=== PATIENT | male | born 1965 | race Caucasian/White ===

== ENCOUNTER 2018-05-31 20:23 | Emergency (ER) | payer BC ==
--- OUTSIDE RECORDS SUMMARY | 2018-05-31 20:28 | XMS REPORT | Continuity of Care Document ---
:1965 External Reference #:[id number] Author Name Vinh Kinsey M.D. Address [address] [place] [place] [address] Care Team Providers Name Role Phone Vinh Kinsey M.D. Care Team Information Marriage And Family Counselor Unavailable Payers Type Date Identification Numbers Payment Provider Subscriber Expires: Policy Number: [id number] Corinna LE Jeremy Velasquezrecht 2011 Group Name: [employer] [place] [address] [address] PayID: [id number] IGNACIO Roberto [id number] Effective: 2011 Policy Number: [id number] [facility] Jeremy Velasquezrecht Group Name: [employer] [address] [address] PayID: [id number] IGNACIO Roberto [id number] Advance Directives Description No Information Available Problems Description No Active Problems Family History Date Family Member(s) Problem(s) Comments Father Spinal Stenosis Father Hip Fractures B Mother Lupus Erythematosis Mother Stroke Mother CAD Mother [place] mid 50's Children 2 First Son Allergies First Son Asthma Second Son ADHD Second Son Allergies Siblings 4 First Brother Non Contributory : (age First Brother due to Suicide 44 Years) Second Brother Non Contributory Third Brother Spinal Stenosis First Sister Allergies First Sister "A Bleeder" no formal diagnosis Paternal Grandfather due to COPD () - mid 60's Paternal Grandmother due to () Alzheimer's Disease Maternal Grandfather Blood Clots DVT in his leg Maternal Grandfather due to () Complications Of Leg Amputation Maternal Grandmother Stroke Maternal Grandmother due to CHF () Paternal Uncles Hodgkin's Disease Paternal Aunts Diabetes Social History Type Date Description Comments Sex Unknown Lives With Spouse Lives With Sons Diet Healthy, Well Balanced omnivore 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 Tobacco Use Start: Unknown End: Former Cigarette Smoker x 15 years Unknown 1/2 Pack Daily Cigarette Use Quit - Age 30 ETOH Use Drinks About 6 Beers A Week Exercise Exercises sporadically no regular aerobic Type/Frequency exercise. Allergies, Adverse Reactions, Alerts Date Description Reaction Status Severity Comments 11/22/2007 NKDA Active 02/21/2012 Possible PNC Allergy itching. Can't recall Active medicine Medications Medication Date Status Form Strength Qnty SIG Indications Ordering Provider Cyclobenzaprine 04/24/ Active Tablets 5mg 30tab take 1 to 2 M54.2 Vinh HCL 2017 s tablets by Kinseymckinley up to M.D. three times a day as needed for muscle spasm - may cause drowsiness Alprazolam 11/29/ Active Tablets 0.25mg 5tabs take 1 2017 tablet by Kinsey, mouth 1 hr M.D. before procedure. May repeat every 20min if needed Singulair 03/26/ Active Tablets 10mg 90tab 1 by mouth T78.49xA Vinh 2008 s every day Jesica Kinsey Fish Oil 11/21/ Active Capsules 1 PO bid Vinh Kinsey M.D. Cialis 11/21/ Active Tablets 20mg 30tab 1/2 to 1 qd Vinh 2007 geoff prn Jesica Kinsey Cyclobenzaprine 08/31/ Hx Tablets 5mg 45tab 1-2 tab by S39.012A Arsen HCL 2016 - s mouth three Heet[place]ks 11/22/ times a day MD 2016 as needed. Will cause sleepiness. Meloxicam 04/05/ Hx Tablets 15mg 30tab 1 po daily 511.0 Vinh 2011 - s for pain, Amelie 11/22/ take with M.D. 2017 food Celebrex 03/13/ Hx Capsules 200mg 30cap take 1 511.0 Vinh 2011 - s capsule by Amelie 04/05/ mouth once M.D. 2011 daily for arthritis Amoxicillin/Potas 07/23/ Hx Tablets 875-125mg 20tab 1 po bid 461.0 Shawnti sium Clavulanate 2010 - s for sinus R. Storm, 08/07/ infection DRY FINISHER-C 2012 Oxycodone-Acetami 06/11/ Hx Tablets 5-325mg 10ten 1 po q6hr 466.0 [facility] tressa 2009 - prn severe R. Storm, 02/04/ pain DRY FINISHER-C 2010 Azithromycin 04/29/ Hx Tablets 500mg 3tabs 1 po daily 461.0 Alexanderlakshmi 2008 - for three R. Storm, 06/11/ days, if DRY FINISHER-C 2009 still sick after 10 days can take second course Augmentin 03/26/ Hx Tablets 875-125mg 20tab 1 po bid 461.0 Alexadnerlakshmi 2009 - s R. Storm, 08/02/ DRY FINISHER-C 2010 Sonata 04/22/ Hx Capsules 5mg 30cap one to two Vinh 2007 - s po hs prn Amelie, 02/04/ insomnia M.D. 2009 Augmentin 12/05/ Hx Tablets 875mg 28tab one po bid 465.9 Alexanderwlakshmi 2007 - s for R. Storm, 06/11/ sinusitis DRY FINISHER-C 2009 Ricarda 11/21/ Hx Tablets 180mg 90tab 1 PO qd 472.0 Vinh 2007 - s Amelie, 11/21/ M.D. 2007 Albuterol 11/21/ Hx Aerosol 90mcg/Act 1unit 2 Puffs Q4H Vinh 2007 - s prn Amelie, 11/22/ M.D. 2016 Ricarda-D 12 Hour 11/21/ Hx Tablets 12Hour 180ta 1 PO bid 472.0 Vinh 2007 - ER 12HR bs Amelie, 08/07/ M.D. 2011 Medications Administered in Office Medication Date Status Form Strength Qnty SIG Indications Ordering Provider Injection, Administered Injection Arsen Depo-Medrol 018 Heetderks, 40MG Immunizations CPT Code Status Date Vaccine Lot # [id number] Given 01/05/2017 Influenza Virus Vaccine, Quadrivalent, 3 Yr > Quad, Preserv Free 90568 Given 11/22/2016 Tdap (Adacel) [id number] 87429 Given 02/21/2012 Influenza Vaccine-Preservative Free 3 Yrs And [id number] Above 04732 Given 10/10/2005 Tdap (Adacel) Vital Signs Date Vital Result Comment 04/24/2018 11:37am Weight 240.00 lb Weight 108.864 kg BP Systolic 128 mmHg BP Diastolic 80 mmHg Heart Rate 72 /min Body Temperature 98.6 F Respiratory Rate 16 /min 04/03/2018 3:18pm Weight 241.00 lb Weight 109.318 kg BP Systolic 122 mmHg BP Diastolic 78 mmHg Heart Rate 82 /min Body Temperature 97.4 F Respiratory Rate 16 /min 11/29/2017 2:07pm Weight 243.00 lb Weight 110.225 kg BP Systolic 128 mmHg BP Diastolic 82 mmHg Heart Rate 90 /min Body Temperature 97.3 F Respiratory Rate 17 /min Height 75 inches 6'3" BMI (Body Mass Index) 30.4 kg/m2 03/28/2017 9:16am Weight 240.00 lb Weight 108.864 kg BP Systolic 160 mmHg BP Diastolic 90 mmHg Heart Rate 84 /min Body Temperature 97.6 F 11/22/2016 2:13pm Weight 240.00 lb Weight 108.864 kg BP Systolic 130 mmHg BP Diastolic 72 mmHg Heart Rate 76 /min Body Temperature 97.9 F Respiratory Rate 18 /min Height 76 inches 6'4" BMI (Body Mass Index) 29.2 kg/m2 O2 % BldC Oximetry 98 % 08/31/2016 10:47am Weight 246.00 lb Weight 111.586 kg BP Systolic 120 mmHg BP Diastolic 70 mmHg Heart Rate 87 /min Body Temperature 97.8 F Respiratory Rate 12 /min 08/24/2016 10:48am Weight 242.00 lb Weight 109.771 kg BP Systolic 132 mmHg BP Diastolic 90 mmHg Heart Rate 94 /min Body Temperature 97.7 F Respiratory Rate 16 /min Height 75.5 inches 6'3.50" BMI (Body Mass Index) 29.8 kg/m2 O2 % BldC Oximetry 98 % 03/13/2012 9:57am Weight 245.00 lb Weight 111.132 kg BP Systolic 110 mmHg BP Diastolic 80 mmHg Heart Rate 98 /min Body Temperature 97.6 F O2 % BldC Oximetry 98 % 03/08/2012 12:08pm Weight 243.00 lb Weight 110.225 kg BP Systolic 118 mmHg Heart Rate 89 /min 02/21/2012 2:20pm Weight 242.00 lb Weight 109.771 kg BP Systolic 124 mmHg BP Diastolic 80 mmHg Heart Rate 92 /min Height 76.5 inches 6'4.50" BMI (Body Mass Index) 29.1 kg/m2 08/22/2011 3:18pm Weight 244.00 lb Weight 110.678 kg BP Systolic 126 mmHg BP Diastolic 70 mmHg Heart Rate 96 /min 07/24/2011 1:34pm Weight 241.00 lb Weight 109.318 kg BP Systolic 130 mmHg BP Diastolic 84 mmHg Heart Rate 84 /min Height 76.5 inches 6'4.50" BMI (Body Mass Index) 29.0 kg/m2 Right Visual Acuity Distance 20/40 Left Visual Acuity Distance 20/200 Blind (Amblyopia) Both Visual Acuity Distance 20/30 Last Menstrual Period 0 02/28/2011 4:03pm Weight 238.00 lb Weight 107.957 kg BP Systolic 118 mmHg BP Diastolic 62 mmHg Heart Rate 80 /min Body Temperature 98.0 F 07/23/2010 10:51am Weight 244.00 lb With Boots Weight 110.678 kg BP Systolic 98 mmHg BP Diastolic 60 mmHg Body Temperature 96.8 F 02/04/2010 8:55am Weight 237.00 lb Weight 107.503 kg BP Systolic 118 mmHg BP Diastolic 74 mmHg Heart Rate 88 /min Height 76 inches 6'4" BMI (Body Mass Index) 28.8 kg/m2 06/11/2009 2:50pm Weight 242.00 lb Weight 109.771 kg BP Systolic 120 mmHg BP Diastolic 80 mmHg Heart Rate 100 /min Body Temperature 98.8 F O2 % BldC Oximetry 98 % AT Room Air 04/29/2009 8:53am Weight 238.00 lb Weight 107.957 kg BP Systolic 100 mmHg BP Diastolic 84 mmHg Heart Rate 108 /min Body Temperature 98.0 F 03/26/2009 11:23am Weight 242.00 lb Weight 109.771 kg BP Systolic 128 mmHg BP Diastolic 90 mmHg Heart Rate 96 /min Body Temperature 97.9 F 01/07/2009 5:12pm Weight 228.00 lb Weight 103.421 kg BP Systolic 130 mmHg BP Diastolic 84 mmHg Heart Rate 96 /min 06/30/2008 11:09am Weight 239.00 lb Weight 108.410 kg BP Systolic 110 mmHg BP Diastolic 80 mmHg Heart Rate 72 /min Body Temperature 97.0 F 04/22/2008 12:10pm Weight 232.00 lb Weight 105.235 kg BP Systolic 134 mmHg BP Diastolic 72 mmHg Heart Rate 88 /min Height 76.25 inches 6'4.25" BMI (Body Mass Index) 28.1 kg/m2 12/06/2007 2:23pm Weight 221.00 lb Weight 100.246 kg BP Systolic 120 mmHg BP Diastolic 70 mmHg Heart Rate 92 /min Body Temperature 97.0 F Height 76.25 inches 6'4.25" BMI (Body Mass Index) 26.7 kg/m2 11/22/2007 8:44am Weight 224.00 lb Weight 101.606 kg BP Systolic 116 mmHg BP Diastolic 78 mmHg Heart Rate 80 /min Height 76.25 inches 6'4.25" BMI (Body Mass Index) 27.1 kg/m2 Results Test Date Facility Test Result H/L Range Note CBC Auto Diff 11/14/2017 [facility] White Blood 5.8 10^3/uL N 3.5-10.8 [phone] Count Red Blood Count 5.73 10^6/uL High 4.00-5.40 Hemoglobin 17.4 g/dL N 14.0-18.0 Hematocrit 50 % N 42-52 Mean Corpuscular Volume 87 fL N 80-94 Mean Corpuscular Hemoglobin 30 pg N 27-31 Mean Corpuscular HGB Conc 35 g/dL N 31-36 Red Cell Distribution Width 13 % N 10.5-15 Platelet Count 190 10^3/uL N 150-450 Mean Platelet Volume 8.3 um3 N 7.4-10.4 Abs Neutrophils 3.7 10^3/uL N 1.5-7.7 Abs Lymphocytes 1.2 10^3/uL N 1.0-4.8 Abs Monocytes 0.6 10^3/uL N 0-0.8 Abs Eosinophils 0.2 10^3/uL N 0-0.6 Abs Basophils 0.1 10^3/uL N 0-0.2 Abs Nucleated RBC 0 10^3/uL Granulocyte % 63.6 % N 38-83 Lymphocyte % 21.2 % Low 25-47 Monocyte % 10.5 % High 0-7 Eosinophil % 3.8 % N 0-6 Basophil % 0.9 % N 0-2 Nucleated Red Blood Cells % 0.1 Comp Metabolic Panel 11/14/2017 [facility] Sodium 140 mmol/L N 135-145 [phone] Potassium 4.3 mmol/L N 3.5-5.0 Chloride 106 mmol/L N 101-111 Co2 Carbon Dioxide 27 mmol/L N 22-32 Anion Gap 7 mmol/L N 2-11 Glucose 113 mg/dL High 70-100 Blood Urea Nitrogen 18 mg/dL N 6-24 Creatinine 0.97 mg/dL N 0.67-1.17 BUN/Creatinine Ratio 18.6 N 8-20 Calcium 9.3 mg/dL N 8.6-10.3 Total Protein 6.9 g/dL N 6.4-8.9 Albumin 4.2 g/dL N 3.2-5.2 Globulin 2.7 g/dL N 2-4 Albumin/Globulin Ratio 1.6 N 1-3 Total Bilirubin 0.80 mg/dL N 0.2-1.0 Alkaline Phosphatase 105 U/L High 34-104 Alt 35 U/L N 7-52 Ast 24 U/L N 13-39 Egfr Non- 81.3 >60 Egfr 98.3 >60 1 Lipid Profile 11/14/2017 [facility] Triglycerides 194 mg/dL 2 (Trig/Chol/HDL) [phone] Cholesterol 188 mg/dL 3 HDL Cholesterol 31.2 mg/dL 4 LDL Cholesterol 118 mg/dL 5 Laboratory test 11/14/2017 [facility] Hemoglobin A1c 5.6 % N 4.0-5.6 6 finding [phone] PSA Screening 0.654 ng/mL N 0-4.000 7 Testosterone 354.77 ng/dL N 240-950 8 TSH (Thyroid Stimulating Horm) 2.45 mcIU/mL N 0.34-5.60 9 Urine DIP 11/22/2016 In House Lab Leukocytes neg Neg (607)- - Urine Nitrites neg Neg Urobilinogen norm Norm Total Protein, Urine neg Neg Urine pH 5 5-6 Urine Blood neg Neg Specific [place] 1.020 1.01-1.02 Urine Ketones neg Neg Urine Bilirubin neg Neg Urine Glucose norm Norm Comp Metabolic Panel 11/17/2016 [facility] Sodium 135 mmol/L N 133-145 [phone] Potassium 4.8 mmol/L N 3.5-5.0 Chloride 104 mmol/L N 101-111 Co2 Carbon Dioxide 27 mmol/L N 22-32 Anion Gap 4 mmol/L N 2-11 Glucose 104 mg/dL High 70-100 Blood Urea Nitrogen 17 mg/dL N 6-24 Creatinine 0.96 mg/dL N 0.67-1.17 BUN/Creatinine Ratio 17.7 N 8-20 Calcium 9.3 mg/dL N 8.6-10.3 Total Protein 6.9 g/dL N 6.4-8.9 Albumin 4.3 g/dL N 3.2-5.2 Globulin 2.6 g/dL N 2-4 Albumin/Globulin Ratio 1.7 N 1-3 Total Bilirubin 0.80 mg/dL N 0.2-1.0 Alkaline Phosphatase 82 U/L N 34-104 Alt 34 U/L N 7-52 Ast 22 U/L N 13-39 Egfr Non- 82.6 N >60 Egfr 106.2 N >60 10 Lipid Profile 11/17/2016 [facility] Triglycerides 161 mg/dL N 11 (Trig/Chol/HDL) [phone] Cholesterol 200 mg/dL N 12 HDL Cholesterol 30.0 mg/dL N 13 LDL Cholesterol 138 mg/dL N 14 Laboratory test 11/17/2016 [facility] Hemoglobin A1c 5.2 % N Less than 15 finding [phone] (Glyco HGB) 6.0 PSA Screening 0.899 ng/mL N 0-4.000 16 CBC Auto Diff 11/17/2016 [facility] White Blood 5.5 10^3/uL N 3.5-10.8 [phone] Count Red Blood Count 5.76 10^6/uL High 4.0-5.4 Hemoglobin 17.6 g/dL N 14.0-18.0 Hematocrit 52 % N 42-52 Mean Corpuscular Volume 91 fL N 80-94 Mean Corpuscular Hemoglobin 31 pg N 27-31 Mean Corpuscular HGB Conc 34 g/dL N 31-36 Red Cell Distribution Width 13 % N 10.5-15 Platelet Count 172 10^3/uL N 150-450 Mean Platelet Volume 9 um3 N 7.4-10.4 Abs Neutrophils 3.3 10^3/uL N 1.5-7.7 Abs Lymphocytes 1.3 10^3/uL N 1.0-4.8 Abs Monocytes 0.6 10^3/uL N 0-0.8 Abs Eosinophils 0.2 10^3/uL N 0-0.6 Abs Basophils 0.1 10^3/uL N 0-0.2 Abs Nucleated RBC 0.01 10^3/uL N Granulocyte % 59.8 % N 38-83 Lymphocyte % 24.5 % Low 25-47 Monocyte % 10.6 % High 1-9 Eosinophil % 4.0 % N 0-6 Basophil % 1.1 % N 0-2 Nucleated Red Blood Cells % 0.1 N Basic Metabolic 10/14/2012 [facility] Sodium 138 mmol /L 133-145 Panel [phone] Potassium 4.1 mmol/L 3.5-5.0 Chloride 106 mmol/L 101-111 Co2 Carbon Dioxide 26.0 mmol/L 22-32 Anion Gap 6.0 mmol/L 2-11 Glucose 85 mg/dL 70-100 Blood Urea Nitrogen 12 mg/dL 6-24 Creatinine 1.10 mg/dL 0.50-1.40 BUN/Creatinine Ratio 10.9 8-20 Calcium 8.8 mg/dL 8.1-9.9 Egfr Non- 71.8 >60 Egfr 92.3 >60 17 Laboratory test 10/14/2012 [facility] C Reactive 0.8 mg/dL High Less than finding [phone] Protein 0.5 Rheumatoid Factor <15 IU/mL <15 18 Jolie (Anti-Nuclear AB) Screen Negative Negative Antistreptolysin O Titer Negative IU/mL <200 Iu/mL 19 Laboratory test 04/01/2012 [facility] Lyme Disease Negative Negative 20 finding [phone] Serology Laboratory test 03/14/2012 [facility] Sm (Silverio) IgG <0.2 U 21 finding [phone] Antibody Cardiolipin 03/14/2012 [facility] Cardiolipin IgG < 4.0 GPL 22 Igg,Igm,Iga AB [phone] Cardiolipin IgM <4.0 MPL 23 Cardiolipin IgA <4.0 APL 24 Laboratory test 03/14/2012 [facility] Anti Nuclear Negative Negative finding [phone] Antibody Screen Anti Double Stranded Dna Negative Negative CBC With 03/13/2012 [facility] White Blood 7.0 10^3/ uL 4.8-10.8 Manual Diff [phone] Count Red Blood Count 5.15 10^6/uL 4.0-5.4 Hemoglobin 15.7 g/dL 14.0-18.0 Hematocrit 46 % 42-52 Mean Corpuscular Volume 89 fL 80-94 Mean Corpuscular Hemoglobin 31 pg 27-31 Mean Corpuscular HGB Conc 34 g/dL 31-36 Red Cell Distribution Width 13 % 10.5-15 Platelet Count 229 10^3/uL 150-450 Mean Platelet Volume 8 um3 7.4-10.4 Abs Neutrophils 4.1 10^3/uL 1.5-7.7 Abs Lymphocytes 1.4 10^3/uL 1.0-4.8 Abs Monocytes 0.8 10^3/uL 0-0.8 Abs Eosinophils 0.6 10^3/uL 0-0.6 Abs Basophils 0.1 10^3/uL 0-0.2 Abs Nucleated RBC 0 10^3/uL Neutrophil % 74.0 % 38-83 Band % 3.0 % 0-8 Lymphocytes % 12.0 % Low 25-47 Monocytes % 6.0 % 0-13 Eosinophils % 5.0 % 0-6 Basophil % 0 % 0-2 Reactive Lymph % 0 % 0-6 Metamyelocytes % 0 % 0-2 Myelocytes % 0 % 0-1 Promyelocytes % 0 % Blast % 0 % RBC Morphology Normal Normal Laboratory test 03/13/2012 [facility] Erythrocyte Sed 38 MM/HR High 0-14 finding [phone] Rate C Reactive Protein 5.6 mg/dL High Less Than 0.5 CBC Auto Diff 03/06/2012 [facility] White Blood 7.4 10^3/uL 4.8-10.8 [phone] Count Red Blood Count 5.55 10^6/uL High 4.0-5.4 Hemoglobin 17.3 g/dL 14.0-18.0 Hematocrit 49 % 42-52 Mean Corpuscular Volume 89 fL 80-94 Mean Corpuscular Hemoglobin 31 pg 27-31 Mean Corpuscular HGB Conc 35 g/dL 31-36 Red Cell Distribution Width 12 % 10.5-15 Platelet Count 197 10^3/uL 150-450 Mean Platelet Volume 9 um3 7.4-10.4 Abs Neutrophils 4.9 10^3/uL 1.5-7.7 Abs Lymphocytes 1.3 10^3/uL 1.0-4.8 Abs Monocytes 0.8 10^3/uL 0-0.8 Abs Eosinophils 0.3 10^3/uL 0-0.6 Abs Basophils 0.1 10^3/uL 0-0.2 Abs Nucleated RBC 0 10^3/uL Granulocyte % 66.3 % 38-83 Lymphocyte % 17.6 % Low 25-47 Monocyte % 11.0 % High 1-9 Eosinophil % 4.3 % 0-6 Basophil % 0.8 % 0-2 Nucleated Red Blood Cells % 0 Laboratory test 03/06/2012 [facility] Erythrocyte Sed 11 MM/HR 0-14 finding [phone] Rate Laboratory test 03/06/2012 [facility] Creatine Kinase 68 U/L 0-200 finding [phone] CKMB 03/06/2012 [facility] CKMB In NG/ML 1.1 NG/ML 0.3-4.0 [phone] CKMB % 2.0 % 0-9 25 Laboratory test 03/06/2012 [facility] Troponin I 0 NG /ML 26 finding [phone] Laboratory test 03/06/2012 [facility] Inr 0.94 0.82-1.1 27 finding [phone] 7 Activated Partial Thrombo Time 27.6 SEC 25.15-38.53 D Dimer Quantitative 331 NG/ML High Less Than 230 28 Laboratory test 03/06/2012 [facility] B Type < 7.5 0-100 finding [phone] Natriuretic pg/mL Peptide Comp Metabolic 03/06/2012 [facility] Sodium 138 mmol/ L 133-145 Panel [phone] Potassium 3.9 mmol/L 3.5-5.0 Chloride 107 mmol/L 101-111 Co2 Carbon Dioxide 25.0 mmol/L 22-32 Anion Gap 6.0 mmol/L 2-11 Glucose 122 mg/dL High 70-100 Blood Urea Nitrogen 15 mg/dL 6-24 Creatinine 1.00 mg/dL 0.50-1.40 BUN/Creatinine Ratio 15.0 8-20 Calcium 8.8 mg/dL 8.1-9.9 Total Protein 7.2 GM/DL 6.2-8.1 Albumin 3.8 GM/DL 3.6-5.4 Globulin 3.4 GM/DL 2-4 Albumin/Globulin Ratio 1.1 1-3 Total Bilirubin 0.6 mg/dL 0.1-1.0 29 Alkaline Phosphatase 96 U/L 30-110 Alt 33 U/L 14-54 Ast 24 U/L 12-42 Egfr Non- 80.4 >60 Egfr 103.5 >60 30 Laboratory test 03/06/2012 [facility] Magnesium 2.0 mg/dL 1.7-2.6 finding [phone] Lipase 24 U/L 22-51 Troponin I 0 NG/ML 31 Creatine Kinase 90 U/L 0-200 CKMB 03/06/2012 [facility] CKMB In NG/ML 1.4 NG/ML 0.3-4.0 [phone] CKMB % 2.0 % 0-9 32 Laboratory test 03/06/2012 [facility] C Reactive 1.5 mg/dL High Less Than finding [phone] Protein 0.5 Basic Metabolic 02/20/2012 [facility] Sodium 139 mmol /L 133-145 Panel [phone] Potassium 4.1 mmol/L 3.5-5.0 Chloride 109 mmol/L 101-111 Co2 Carbon Dioxide 25.0 mmol/L 22-32 Anion Gap 5.0 mmol/L 2-11 Glucose 93 mg/dL 70-100 Blood Urea Nitrogen 20 mg/dL 6-24 Creatinine 1.00 mg/dL 0.50-1.40 BUN/Creatinine Ratio 20.0 8-20 Calcium 8.9 mg/dL 8.1-9.9 Egfr Non- 80.4 >60 Egfr 103.5 >60 33 Laboratory test 02/20/2012 [facility] Hemoglobin A1c 4.8 % Less than 34 finding [phone] 6.0 Lipid Profile 02/20/2012 [facility] Triglycerides 194 mg/dL 40-200 (Trig/Chol/HDL) [phone] Cholesterol 201 mg/dL High Less than 200 35 HDL Cholesterol 30 mg/dL Low 40-60 36 Cholesterol/HDL Ratio 6.7 AVERAGE High 1-4.44 LDL Cholesterol 132.2 mg/dL High Less Than 100 Laboratory test 07/25/2011 [facility] Hemoglobin A1c 5.0 % Less Than 37 finding [phone] 6.0 CBC Auto Diff 07/25/2011 [facility] White Blood 4.9 CUMM 4.8-10.8 [phone] Count Red Cell Count 5.42 CUMM 4.6-6.2 Hemoglobin 17.0 g/dL 14.0-18.0 Hematocrit 48 % 42-52 Mean Corpuscular Volume 88 um3 80-94 Mean Corpuscular Hemoglob 31 pg 27-31 Mean Corpuscular HGB Cone 36 g/dL 32-36 Redcell Distribution WDTH 12 % 10.5-15 Platelet Count 189 CUMM 150-450 Mean Platelet Volume 8.2 um3 7.4-10.4 Gran % 57.0 % 38-83 Lymph % 27.2 % 25-47 Mononuclear % 10.9 % High 1-9 Eosinophil % 4.4 % 0-6 Basophil % 0.5 % 0-2 Abs Lymphs 1.3 1.0-4.8 Abs Mononuclear 0.5 0-0.8 Absolute Neutrophil Count 2.8 1.5-7.7 Abs Eosinophils 0.2 0-0.6 Abs Basophils 0 0-0.2 38 Lipid Profile 07/25/2011 [facility] Triglyceride 158 mg/dL 40-200 (Trig/Chol/HDL) [phone] Cholesterol 195 mg/dL Less Than 200 39 High Density Lipoprotein 27 mg/dL Low 40-60 40 Cholesterol/HDL Ratio 7.22 AVERAGE High 1-4.97 Low Density Lipoprotein 136 mg/dL High Less Than 100 41 Comp Metabolic Panel 07/25/2011 [facility] Sodium 137 mmol/L 135-145 [phone] Potassium 4.1 mmol/L 3.5-5.0 Chloride 107 mmol/L 101-111 Co2 (Carbon Dioxide) 22.0 mmol/L 22-32 Anion Gap 8.0 mmol/L 2-11 42 Glucose 110 mg/dL High 70-100 BUN 16 mg/dL 6-24 Creatinine 1.0 mg/dL 0.50-1.40 One Over Creatinine 1.00 BUN/Creatinine Ratio 16.0 8-20 Calcium 8.6 mg/dL 8.1-9.9 Total Protein 7.0 GM/DL 6.2-8.1 Albumin 3.9 GM/DL 3.6-5.4 Globulin 3.1 GM/DL 2-4 Albumin/Globulin Ratio 1.3 1-3 Bilirubin Total 0.9 mg/dL 0.4-1.5 43 Alkaline Phosphatase 90 U/L 39-117 Alt (SGPT) 43 U/L 17-63 Ast (Sgot) 30 U/L 12-42 eGFR Non- 80.8 > 60 eGFR 103.9 > 60 44 Urine DIP 07/24/2011 In House Lab Leukocytes NEG Neg (607)- - Urine Nitrites NEG Neg Urine pH 5 5-6 Total Protein, Urine NEG Neg Urine Glucose NORM Norm Urine Ketones NEG Neg Urobilinogen NORM Norm Urine Bilirubin NEG Neg Urine Blood NEG Neg Specific [place] 1.025 High 1.01-1.02 Urine DIP 02/04/2010 In House Lab Leukocytes NEG Neg (607)- - Urine Nitrites NEG Neg Urine pH 5 5-6 Total Protein, Urine NEG Neg Urine Glucose NORM Norm Urine Ketones NEG Neg Urobilinogen NORM Norm Urine Bilirubin NEG Neg Urine Blood NEG Neg Specific [place] N/A Low 1.01-1.02 Lipid Profile 02/04/2010 [facility] Triglyceride 176 mg/dL 40-200 (Trig/Chol/HDL) [phone] Cholesterol 207 mg/dL High Less Than 200 45 High Density Lipoprotein 30 mg/dL Low 40-60 46 Cholesterol/HDL Ratio 6.90 AVERAGE High 1-4.97 Low Density Lipoprotein 142 mg/dL High Less Than 100 47 Laboratory test 12/06/2007 In House Lab Strep Screen NEG Neg finding (607)- - Laboratory test 12/06/2007 [facility] Throat Culture NORMAL THROAT 48 finding [phone] Full FL <SEE NOTE> Laboratory test 11/12/2007 [facility] Troponin-I 0.01 NG/ML 0-0.06 49 finding [phone] (TnI) CMP Stat 11/12/2007 [facility] Sodium 137 mmol/L 135-145 [phone] Potassium 3.9 mmol/L 3.5-5.0 Chloride 107 mmol/L 101-111 Co2 (Carbon Dioxide) 25.0 mmol/L 22-32 Anion Gap 5.0 mmol/L 2-11 50 Glucose 89 mg/dL 70-105 BUN 16 mg/dL 6-24 Creatinine 0.9 mg/dL 0.5-1.4 One Over Creatinine 1.11 BUN/Creatinine Ratio 17.8 8-20 Calcium 8.3 mg/dL 8.1-9.9 51 Total Protein 6.3 GM/DL 6.2-8.1 Albumin 3.6 GM/DL 3.6-5.4 Globulin 2.7 GM/DL 2-4 Albumin/Globulin Ratio 1.3 1-3 Bilirubin Total 0.8 mg/dL 0.4-1.5 Alkaline Phosphatase 87 U/L 39-117 Alt (SGPT) 30 U/L 17-63 Ast (Sgot) 24 U/L 12-42 CBC With 11/12/2007 [facility] White Blood 6.6 CUMM 4.8-10.8 Electronic Diff [phone] Count Red Cell Count 5.44 CUMM 4.6-6.2 Hemoglobin 16.5 g/dL 14.0-18.0 Hematocrit 47 % 42-52 Mean Corpuscular Volume 87 um3 80-94 Mean Corpuscular Hemoglob 30 pg 27-31 Mean Corpuscular HGB Cone 35 g/dL 32-36 Redcell Distribution WDTH 13 % 10.5-15 Platelet Count 225 CUMM 150-450 Mean Platelet Volume 8.8 um3 7.4-10.4 Gran % 61.6 % 38-83 Lymph % 25.4 % 20-45 Mononuclear % 9.5 % High 1-9 Eosinophil % 3.2 % 0-6 Basophil % 0.3 % 0-2 Abs Lymphs 1.7 1.0-4.8 Abs Mononuclear 0.6 0-0.8 Absolute Neutrophil Count 4.1 1.5-7.7 Abs Eosinophils 0.2 0-0.6 Abs Basophils 0 0-0.2 Laboratory test finding 10/25/2005 Other TSH (Thyroid Stimulating Horm) 1.59 T4 Free 1.21 T3-Free 3.36 Lipid Panel 10/25/2005 Other Cholesterol, Total 182 HDL 33 LDL/HDL Risk Ratio 5.6 Low Density Lipoprotein 118 Triglycerides 157 1 Because ethnic data is not always readily available, this report includes an eGFR for both -Americans and non- Americans. The National Kidney Disease Education Program (NKDEP) does not endorse the use of the MDRD equation for patients that are not between the ages of 18 and 70, are , have extremes of body size, muscle mass, or nutritional status, or are non- or non-. According to the National Kidney Foundation, irrespective of diagnosis, the stage of the disease is based on the level of kidney function: Stage Description GFR(mL/min/1.73 m(2)) 1 Kidney damage with normal or decreased GFR 90 2 Kidney damage with mild decrease in GFR 60-89 3 Moderate decrease in GFR 30-59 4 Severe decrease in GFR 15-29 5 Kidney failure <15 (or dialysis) 2 Desirable: <150 Borderline High: 150-199 High: 200-499 Very High: >500 3 Desirable: <200 Borderline High: 200-239 High: >239 4 Low: <40 Desirable: 40-60 High: >60 5 Desirable: <100 Near Optimal: 100-129 Borderline High: 130-159 High: 160-189 Very High: >189 6 Therapeutic target for the treatment of diabetes mellitus patients is <7% HBA1C, and in selective patients <6.0%. Please refer to [place] [employer] diabetic care guidelines for further information. 7 FASTING 8 FASTING 9 FASTING 10 Because ethnic data is not always readily available, this report includes an eGFR for both -Americans and non- Americans. The National Kidney Disease Education Program (NKDEP) does not endorse the use of the MDRD equation for patients that are not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
--- NOTE | 2018-05-31 21:53 | UC ---
Upper Extremity HPI - HPI Summary HPI Summary: 52-year-old male presents with complaints of left wrist pain after slipping on the ice and falling. He is unsure of the exact mechanism of injury. He complains of pain to the ulnar aspect of the wrist especially over the ulnar styloid process. States he has full range of motion. Denies any numbness or tingling. - History of Current Complaint Chief Complaint: UCUpperExtremity Stated Complaint: WRIST INJURY Time Seen by Provider: 05/31/18 21:24 Hx Obtained From: Patient Pain Intensity: 2 - Allergies/Home Medications Allergies/Adverse Reactions: Allergies Allergy/AdvReac Type Severity Reaction Status Date / Time PENICILLINS Allergy Rash Uncoded 05/31/18 20:37 PMH/Surg Hx/FS Hx/Imm Hx Previously Healthy: Yes - Denies significant PMH - Surgical History Surgical History: Yes Surgery Procedure, Year, and Place: 1979, 2005, 20O7 three ear surgeries for perforation of eardrum. [facility]. 2005 LEFT ING. hernia REPAIR [facility] - Family History Known Family History: Positive: Non-Contributory - Social History Occupation: Employed Full-time Lives: With Family Alcohol Use: Occasionally Alcohol Amount: 2-3 BEERS/WEEK Substance Use Type: None Smoking Status (MU): Former Smoker Type: Cigarettes Amount Used/How Often: 1/2PPD 15 YRS Have You Smoked in the Last Year: No When Did the Patient Quit Smoking/Using Tobacco: 1994 - Immunization History Most Recent Influenza Vaccination: 2013 Most Recent Tetanus Shot: unk Most Recent Pneumonia Vaccination: none Review of Systems All Other Systems Reviewed And Are Negative: Yes Constitutional: Positive: Negative Skin: Negative: Bruising Respiratory: Positive: Negative Cardiovascular: Positive: Negative Gastrointestinal: Positive: Negative Genitourinary: Positive: Negative Motor: Negative: Weakness Neurovascular: Negative: Decreased Sensation Musculoskeletal: Positive: Other: - See HPI Neurological: Positive: Negative Is Patient Immunocompromised?: No Physical Exam - Summary Physical Exam Summary: GENERAL APPEARANCE: Well developed, well nourished, alert and cooperative, and appears to be in no acute distress. HEAD: Atraumatic. normocephalic. EYES: PERRL, EOM intact. Vision is grossly intact. NECK: Neck supple, non-tender. CARDIAC: Normal S1 and S2. No S3, S4 or murmurs. Rhythm is regular. There is no peripheral edema, cyanosis or pallor. Extremities are warm and well perfused. Capillary refill is less than 2 seconds. Peripheral pulses intact. LUNGS: Clear to auscultation without rales, rhonchi, wheezing or diminished breath sounds. ABDOMEN: Positive bowel sounds. Soft, nondistended, nontender. No guarding or rebound. No masses or hepatosplenomegally. MUSKULOSKELETAL: Mild tenderness and swelling to the ulnar wrist especially at the ulnar styloid process. No gross deformity, ecchymosis, or lesions noted. Full ROM intact. Circulation and sensation intact. BACK: Examination of the spine reveals normal gait and posture, no spinal deformity or tenderness, decreased range of motion or muscular spasm. NEUROLOGICAL: Strength and sensation symmetric and intact. SKIN: Skin normal color, texture and turgor with no lesions or eruptions. Triage Information Reviewed: Yes Vital Signs: Initial Vital Signs Temp 98.1 F 05/31/18 20:33 Pulse 89 05/31/18 20:33 Resp 18 05/31/18 20:33 BP 147/100 05/31/18 20:33 Pulse Ox 98 05/31/18 20:33 Vital Signs Reviewed: Yes Diagnostics - Radiology No standard instances Radiology Interpretation Completed By: ED Physician Summary of Radiographic Findings: No acute fracture or dislocation. Upper Extremity Course/Dx - Course Course Of Treatment: 52-year-old male presents with complaints of left wrist pain after slipping on the ice and falling. He is unsure of the exact mechanism of injury. He complains of pain to the ulnar aspect of the wrist especially over the ulnar styloid process. States he has full range of motion. Denies any numbness or tingling. Afebrile. He was noted to have an elevated blood pressure but otherwise vital signs are stable. Exam reveals an adult male in no acute distress. He has some mild tenderness over the ulnar styloid process of the left wrist. Mild swelling. No gross deformity, ecchymosis, erythema, or lesions are noted. Circulation and sensation are intact distally. X-ray showed no acute fracture or dislocation. Patient declined pain medication. He was placed in a cock up wrist splint by the RN. His circulation and sensation were intact pre-and post-application. Recommending conservative treatment with NSAIDs and RICE for a left wrist sprain versus contusion. He is to follow-up with orthopedic surgery in 7 days if symptoms do not improve. Anticipatory guidance and warning symptoms are reviewed with the patient. He verbalizes understanding and agrees with plan of care. - Differential Dx/Diagnosis Differential Diagnosis/HQI/PQRI: Contusion, Fracture (Closed), Hematoma, Strain , Sprain Provider Diagnosis: Left wrist sprain, Contusion of left wrist, Elevated blood pressure reading Discharge - Sign-Out/Discharge Documenting (check all that apply): Patient Departure All imaging exams completed and their final reports reviewed: No - Discharge Plan Condition: Stable Disposition: HOME Patient Education Materials: Contusion in Adults (ED), Wrist Sprain (ED) Referrals: Vinh Kinsey MD [Primary Care Provider] - Jaquelin Vázquez MD [Medical Doctor] - 7 Days (If no improvement in symptoms) Additional Instructions: The x-ray of your wrist performed in the clinic tonight showed no evidence of a fracture. The radiologist will be reviewing the x-ray tomorrow and we will contact you if they see anything that would change your plan of care. Take ibuprofen 600 mg every 8 hours with food as needed for pain. Rest the wrist as much as possible. Wear the splint provided to you for support and comfort. Avoid heavy lifting and strenuous exercise. Apply ice to the affected area for 15-20 minutes at least 4 times a day to help with pain and swelling. Keep the arm elevated at the level of your heart to reduce swelling. Your blood pressure was elevated in the clinic tonight. It is recommended that you have this rechecked by your primary care provider within 4 weeks. Follow up with Dr. Vázquez, orthopedic surgery, in 7 days if there is no improvement in your symptoms. Call for an appointment. Seek immediate medical attention in the emergency room if you develop severe pain not managed with pain medication, the hand or fingers turn pale or blue color, you develop numbness or tingling in the hands or fingers, or any worsening of symptoms. - Billing Disposition and Condition Condition: STABLE Disposition: Home
[2018-05-31 22:12] VITALS: BP 132/98
--- NOTE | 2018-06-01 15:05 | UC ---
- Progress Note Progress Note: OFFICIAL RADIOLOGY REPORT REVIEWED AND CONFIRMS NO FRACTURE. NO CHANGE IN MGMT. Course/Dx - Diagnoses Provider Diagnoses: Left wrist sprain, Contusion of left wrist, Elevated blood pressure reading Discharge - Sign-Out/Discharge Documenting (check all that apply): Post-Discharge Follow Up All imaging exams completed and their final reports reviewed: Yes - Discharge Plan Condition: Stable Disposition: HOME Patient Education Materials: Contusion in Adults (ED), Wrist Sprain (ED) Referrals: Vinh Kinsey MD [Primary Care Provider] - Jaquelin Vázquez MD [Medical Doctor] - 7 Days (If no improvement in symptoms) Additional Instructions: The x-ray of your wrist performed in the clinic tonight showed no evidence of a fracture. The radiologist will be reviewing the x-ray tomorrow and we will contact you if they see anything that would change your plan of care. Take ibuprofen 600 mg every 8 hours with food as needed for pain. Rest the wrist as much as possible. Wear the splint provided to you for support and comfort. Avoid heavy lifting and strenuous exercise. Apply ice to the affected area for 15-20 minutes at least 4 times a day to help with pain and swelling. Keep the arm elevated at the level of your heart to reduce swelling. Your blood pressure was elevated in the clinic tonight. It is recommended that you have this rechecked by your primary care provider within 4 weeks. Follow up with Dr. Vázquez, orthopedic surgery, in 7 days if there is no improvement in your symptoms. Call for an appointment. Seek immediate medical attention in the emergency room if you develop severe pain not managed with pain medication, the hand or fingers turn pale or blue color, you develop numbness or tingling in the hands or fingers, or any worsening of symptoms. - Billing Disposition and Condition Condition: STABLE Disposition: Home
== END 2018-05-31 22:10 | disposition home or self-care (01) ==
LOC: UCEAST 20:23
DX: S63.502A Unspecified sprain of left wrist, initial encounter (principal); S60.212A Contusion of left wrist, initial encounter; R03.0 Elevated blood-pressure reading, without diagnosis of hypertension; W00.0XXA Fall on same level due to ice and snow, initial encounter; Y92.9 Unspecified place or not applicable
CPT/HCPCS: 99212; G0463

== ENCOUNTER 2018-07-21 08:28 | Emergency (ER) | payer BC ==
--- OUTSIDE RECORDS SUMMARY | 2018-07-21 08:44 | XMS REPORT | Continuity of Care Document ---
:1965 External Reference #:[id number] Author Name Danna Garner PA-C Address [address] [place] [address] Care Team Providers Name Role Phone Amelie Vinh Primary Care Physician Unavailable Payers Date Identification Numbers Payment Provider Subscriber Policy Number: [id number] [facility] Jeremy Myers PayID: [id number] [address] [address] [place] [address] Advance Directives Description No Information Available Problems Date Description Provider Status Onset: 02/02/2011 Perforation of tympanic membrane Edwin Sullivan MD Active Onset: 02/02/2011 Chronic mycotic otitis externa Edwin Sullivan MD Active Onset: 02/02/2011 Chronic otitis media Edwin Sullivan MD Active Onset: 02/02/2011 Chronic otitis externa Edwin Sullivan MD Active Onset: 02/02/2011 Middle ear conductive hearing loss Edwin Sullivan MD Active Onset: 04/19/2015 Chronic serous otitis media Chinmay Reinoso MD Active Onset: 04/19/2015 Disorder of tympanic membrane Chinmay Reinoso MD Active Family History Date Family Member(s) Observation Comments Mother Lupus Paternal Grandmother Diabetes Paternal Grandmother Alzheimers Social History Type Date Description Comments Sex Unknown Occupation Residence Leasing Agent Tobacco Use Start: Unknown End: Unknown Former Cigarette Smoker Tobacco Use Start: Unknown Never Smoked Cigars Tobacco Use Start: Unknown Never Smoked A Pipe Smokeless Tobacco Never Used Smokeless Tobacco ETOH Use Currently occasionally consumes alcohol Tobacco Use Start: Unknown End: Unknown Patient is a former smoker Allergies, Adverse Reactions, Alerts Description No Known Drug Allergies Medications Medication Date Status Form Strength Qnty SIG Indications Ordering Provider Cialis 08/17/ Active Tablets 20mg Unknown 2005 Singulair / Active Unknown 0000 Montelukast / Active Tablets 10mg Kobe, Sodium 0000 April N.P. Clotrimazole 06/21/ Hx Solution 1% 30ml 4 drops to Edwin 2017 - left ear E. Nate, 07/16/ twice a 2018 day for 10 days Ciprodex 12/08/ Hx Suspension 0.3-0.1% 1Bottl 4 drops Edwin 2015 - e infected E. Nate, 12/13/ ear twice 2016 a day apply rebate rx bin: [id number] rxpcn: loyalty rxgrp:[id number] general clerk: [id number]) id#[id number] 25 Ciprodex 04/19/ Hx Suspension 0.3-0.1% 1units 3 drops H72.92 Arleth 2014 - twice a , Chinmay CABRAL 06/14/ day left 2017 ear Ciprodex 11/20/ Hx Suspension 0.3-0.1% 2units 4 drops 381.10 Eusebio Alexandre 2012 - infected Strominge 05/28/ ear bid r, M.D. 2014 apply rebate rxbin: [id number] rxpcn: loyalty rxgrp: [id number] general clerk: ([id number]) id: [id number] Ciprodex 10/18/ Hx Suspension 0.3-0.1% 1Bottl 4 drops to Edwin 2011 - e left ear E. Nate, 11/20/ bid for 7 MD 2013 days apply rebate rx bin: [id number] rxpcn: loyalty rxgrp:[id number] general clerk: [id number]) id#[id number] 25 Lotrimin AF 09/22/ Hx Solution 1% 2bottl 5 drops to 380.15 Eusebio Alexandre 2010 - es left ear Strominge 10/18/ twice a r, M.Torsten 2011 day for 14 days Ciprodex 07/29/ Hx Suspension 0.3-0.1% 1Bottl 4 drops to Edwin 2010 - e left ear E. Nate, 10/18/ twice 2011 daily Augmentin 08/22/ Hx Tablets 875mg 20tabs 1 by mouth 384.20 Edwin 2006 - twice A Ifeanyi Sullivan, 10/18/ day for 10 2006 days. Percocet 08/22/ Hx Tablets 5mg;325 mg 30tabs 1-2 po q4h 384.20 Edwin 2006 - prn Ifeanyi Sullivan, 10/18/ 2006 Meclizine 08/22/ Hx Capsules 25mg 30caps 1 by mouth 384.20 Edwin 2006 - every 6 Ifeanyi Sullivan, 11/30/ hours as 2006 needed for vertigo Ciprodex 08/22/ Hx Suspension 0.3%;0.1 % 10ml 4 drops to 384.20 Edwin 2006 - affected DanielTate Nate, 01/08/ ear twice 2007 daily Cipro HC 11/15/ Hx Suspension 0.2%;1 % 1Bottl 1 dropper 384.20 Eusebio Alexandre 2004 - e in left Strominge 11/29/ ear bid Jesica cooper 2004 Ricarda D 11/14/ Hx Tablets 60mg;120 60tabs 1 PO bid Unknown 2004 - mg 2010 Augmentin / Hx Unknown 0000 - 2011 Immunizations CPT Code Status Date Vaccine Lot # [id number] Given 02/09/2014 Influenza Virus Vaccine, 3 Years Of Age And Above, Intramuscular Vital Signs Date Vital Result Comment 07/16/2018 9:08am Weight 242.00 lb Weight 109.771 kg Height 75 inches 6'3" Height in cm's 190.5 cm BMI (Body Mass Index) 30.2 kg/m2 01/15/2018 9:04am Weight 238.00 lb Weight 107.957 kg Height 75 inches 6'3" Height in cm's 190.5 cm BMI (Body Mass Index) 29.7 kg/m2 06/21/2017 9:05am Weight 240.00 lb Weight 108.864 kg Height 75 inches 6'3" Height in cm's 190.5 cm BMI (Body Mass Index) 30.0 kg/m2 01/15/2017 9:44am BP Systolic 157 mmHg BP Diastolic 102 mmHg Heart Rate 84 /min Respiratory Rate 17 /min Weight 240.00 lb Weight 108.864 kg Height 75 inches 6'3" Height in cm's 190.5 cm BMI (Body Mass Index) 30.0 kg/m2 12/14/2016 8:40am BP Systolic 137 mmHg BP Diastolic 94 mmHg Heart Rate 75 /min Respiratory Rate 17 /min Weight 240.00 lb Weight 108.864 kg Height 75 inches 6'3" Height in cm's 190.5 cm BMI (Body Mass Index) 30.0 kg/m2 06/15/2016 8:58am BP Systolic 137 mmHg BP Diastolic 95 mmHg Heart Rate 73 /min Respiratory Rate 17 /min Weight 245.00 lb Weight 111.132 kg Height 75 inches 6'3" Height in cm's 190.5 cm BMI (Body Mass Index) 30.6 kg/m2 04/19/2015 9:23am BP Systolic 144 mmHg BP Diastolic 102 mmHg Heart Rate 86 /min Respiratory Rate 17 /min Weight 243.00 lb Weight 110.225 kg Height 76 inches 6'4" Height in cm's 193.0 cm BMI (Body Mass Index) 29.6 kg/m2 12/02/2014 2:45pm BP Systolic 141 mmHg BP Diastolic 89 mmHg Heart Rate 82 /min Respiratory Rate 17 /min Weight 243.00 lb Weight 110.225 kg Height 76 inches 6'4" Height in cm's 193.0 cm BMI (Body Mass Index) 29.6 kg/m2 05/28/2014 1:34pm BP Systolic 129 mmHg BP Diastolic 84 mmHg Heart Rate 78 /min Respiratory Rate 16 /min Weight 243.00 lb Weight 110.225 kg Height 76 inches 6'4" Height in cm's 193.0 cm BMI (Body Mass Index) 29.6 kg/m2 11/20/2013 1:45pm BP Systolic 132 mmHg BP Diastolic 86 mmHg Heart Rate 87 /min Respiratory Rate 16 /min Weight 243.00 lb Weight 110.225 kg Height 76 inches 6'4" Height in cm's 193.0 cm BMI (Body Mass Index) 29.6 kg/m2 07/23/2013 2:25pm BP Systolic 138 mmHg BP Diastolic 94 mmHg Heart Rate 90 /min Respiratory Rate 18 /min Weight 243.00 lb Weight 110.225 kg Height 76 inches 6'4" Height in cm's 193.0 cm BMI (Body Mass Index) 29.6 kg/m2 12/11/2012 4:06pm BP Systolic 128 mmHg BP Diastolic 80 mmHg Heart Rate 88 /min Respiratory Rate 16 /min Weight 243.00 lb Weight 110.225 kg Height 76 inches 6'4" Height in cm's 193.0 cm BMI (Body Mass Index) 29.6 kg/m2 11/20/2012 1:38pm BP Systolic 143 mmHg BP Diastolic 90 mmHg Heart Rate 88 /min Respiratory Rate 17 /min Weight 243.00 lb Weight 110.225 kg Height 76 inches 6'4" Height in cm's 193.0 cm BMI (Body Mass Index) 29.6 kg/m2 05/22/2012 3:11pm BP Systolic 150 mmHg BP Diastolic 90 mmHg Heart Rate 80 /min Respiratory Rate 16 /min Weight 243.00 lb Weight 110.225 kg Height 76 inches 6'4" Height in cm's 193.0 cm BMI (Body Mass Index) 29.6 kg/m2 10/19/2011 1:57pm Weight 230.00 lb Weight 104.328 kg Height 75 inches 6'3" Height in cm's 190.5 cm BMI (Body Mass Index) 28.7 kg/m2 01/09/2008 3:07pm BP Systolic 117 mmHg BP Diastolic 86 mmHg Heart Rate 77 /min Respiratory Rate 16 /min 08/22/2006 9:39am BP Systolic 124 mmHg BP Diastolic 80 mmHg Heart Rate 96 /min Respiratory Rate 16 /min 07/06/2006 9:42am BP Systolic 115 mmHg BP Diastolic 79 mmHg Heart Rate 95 /min Respiratory Rate 16 /min 11/15/2004 2:55pm BP Systolic 128 mmHg BP Diastolic 83 mmHg Heart Rate 78 /min Respiratory Rate 16 /min Results Description No Information Available Procedures Date Code Description Status 07/16/2018 57305 Binocular Microscopy Completed 06/09/2015 87765 Tympanometry Completed 06/09/2015 96953 Comprehensive Audiogram Completed 11/20/2012 53094 Binocular Microscopy Completed 05/22/2012 37692 Tympanometry Completed 05/22/2012 09838 Comprehensive Audiogram Completed 09/22/2010 75890 Binocular Microscopy Completed 07/21/2009 54552 Pers Bal W/O Completed 11/30/2006 96302 Tympanometry Completed 11/30/2006 41600 Tympanometry Completed 11/30/2006 93318 Comprehensive Audiogram Completed 11/30/2006 54373 Comprehensive Audiogram Completed 08/29/2006 30339 Tympanoplasty With Ossicular Chain [id number] Completed 07/06/2006 40448 Tympanometry Completed 07/06/2006 73802 Comprehensive Audiogram Completed 10/20/2005 21577 Pre- Or Post-Op Visit Completed 10/06/2005 49794 Pre- Or Post-Op Visit Completed 09/04/2005 72761 Pre- Or Post-Op Visit Completed 08/29/2005 93511 Tympanoplasty W/O Mastoidectomy Completed 08/17/2005 39435 Pre- Or Post-Op Visit Completed 04/06/2005 07975 Comprehensive Audiogram Completed 01/20/2005 25621 Copay Billing Fee Completed 12/16/2004 88406 Binocular Microscopy Completed 11/15/2004 16803 Binocular Microscopy Completed Encounters Type Date Location Provider Dx Diagnosis Office Visit 07/16/2018 [place] Danna Garner H72.92 Unspecified 8:45a 05/07/07 PA-C perforation of tympanic membrane, left ear H90.12 Condctv hear loss, uni, left ear, w unrestr hear cntra side H61.22 Impacted cerumen, left ear Office Visit 01/15/2018 [place] Edwin Suggs H72.92 Unspecified 9:00a 05/07/07 MD Nate perforation of tympanic membrane, left ear H90.12 Condctv hear loss, uni, left ear, w unrestr hear cntra side Office Visit 07/12/2017 8:45a [place] Edwin Suggs B36.9 Superficial 05/07/07 MD Nate mycosis, unspecified H72.92 Unspecified perforation of tympanic membrane, left ear Office Visit 06/21/2017 [place] Edwin Suggs H72.Yancy Unspecified 9:00a 05/07/07 MD Nate perforation of tympanic membrane, left ear B36.9 Superficial mycosis, unspecified Office Visit 01/19/2017 [place] Chinmay Reinoso H72.92 Unspecified 8:45a 05/07/07 perforation of tympanic membrane, left ear Office Visit 01/15/2017 [place] Chinmay Reinoso H72.92 Unspecified 9:45a 05/07/07 perforation of tympanic membrane, left ear Office Visit 12/14/2016 [place] Edwin Del Cid2.92 Unspecified 9:00a 05/07/07 MD Nate perforation of tympanic membrane, left ear H90.12 Condctv hear loss, uni, left ear, w unrestr hear cntra side Office Visit 06/15/2016 [place] Edwin Suggs H72.92 Unspecified 9:00a 05/07/07 MD Nate perforation of tympanic membrane, left ear H90.12 Condctv hear loss, uni, left ear, w unrestr hear cntra side Office Visit 12/09/2015 [place] Edwin Suggs H72.92 Unspecified 9:15a 05/07/07 MD Nate perforation of tympanic membrane, left ear H90.12 Condctv hear loss, uni, left ear, w unrestr hear cntra side Office Visit 06/09/2015 [place] Edwin Suggs H72.92 Unspecified 2:30p 05/07/07 MD Nate perforation of tympanic membrane, left ear H90.12 Condctv hear loss, uni, left ear, w unrestr hear cntra side Office Visit 04/19/2015 [place] Chinmay Reinoso H72.92 Unspecified 9:30a 05/07/07 perforation of tympanic membrane, left ear H65.22 Chronic serous otitis media, left ear H73.93 Unspecified disorder of tympanic membrane, bilateral Office 12/02/2014 [place] Edwin Suggs 384.20 Perforation Of Tympanic Visit 2:45p 05/07/07 MD Nate Membrane/Unspecified 380.4 Impacted Cerumen / Wax Office 05/28/2014 [place] Edwin Suggs 384.20 Perforation Of Tympanic Visit 1:30p 05/07/07 MD Nate Membrane/Unspecified Office 11/20/2013 [place] Edwin Suggs 384.20 Perforation Of Tympanic Visit 1:45p 05/07/07 MD Nate Membrane/Unspecified 381.10 Otitis Media, Chronic Simple Or Unspecified Office 07/23/2013 [place] Edwin Suggs 384.20 Perforation Of Tympanic Visit 2:30p 05/07/07 MD Nate Membrane/Unspecified 380.10 Otitis Externa Acute Office Visit 12/11/2012 [place] Edwin Suggs 381.10 Otitis Media, 4:15p 05/07/07 MD Nate Chronic Simple Or Unspecified Office Visit 11/20/2012 [place],[facility] Elise 381.10 Otitis Media, 1:30p 05/07/07 Elva ASSEMBLY SUPERVISOR Chronic Simple Or Unspecified Office Visit 05/22/2012 [place] Edwin Suggs 384.20 Perforation Of 3:00p 05/07/07 MD Nate Tympanic Membrane/Unspecif ied 389.03 Hearing Loss, Conductive/Middle Ear Office 11/16/2011 [place] Edwin Suggs 384.20 Perforation Of Tympanic Visit 4:15p 05/07/07 MD Nate Membrane/Unspecified Office 10/19/2011 [place] Elise 384.20 Perforation Of Tympanic Visit 1:45p 05/07/07 Elva ASSEMBLY SUPERVISOR Membrane/Unspecified 381.10 Otitis Media, Chronic Simple Or Unspecified Office 11/18/2010 [place] Edwin Suggs 384.20 Perforation Of Tympanic Visit 2:15p 05/07/07 MD Nate Membrane/Unspecified Office 10/05/2010 [place] Edwin Suggs 380.15 Otitis Externa, Mycotic Visit 4:15p 05/07/07 MD Nate (Chronic) 384.20 Perforation Of Tympanic Membrane/Unspecified Office Visit 09/22/2010 3:30p [place],[facility] 05/07/07 Elise 380.15 Otitis Externa, Elva ASSEMBLY SUPERVISOR Mycotic (Chronic) 384.20 Perforation Of Tympanic Membrane/Unspecified Office 08/05/2010 [place] Edwin Suggs 384.20 Perforation Of Tympanic Visit 10:15a 05/07/07 MD Nate Membrane/Unspecified 381.10 Otitis Media, Chronic Simple Or Unspecified Office Visit 07/29/2010 [place],[facility] Edwin Suggs 381.10 Otitis Media, 11:45a 05/07/07 MD Nate Chronic Simple Or Unspecified 384.20 Perforation Of Tympanic Membrane/Unspecified Office 01/09/2008 [place],[facility] Edwin Suggs 389.03 Hearing Loss, Visit 3:00p 05/07/07 MD Nate Conductive/Middle Ear Office 11/30/2006 [place],[facility] Edwin Suggs 389.03 Hearing Loss, Visit 1:45p 05/07/07 MD Nate Conductive/Middle Ear 381.10 Otitis Media, Chronic Simple Or Unspecified Office 08/22/2006 [place] Edwin Suggs 384.20 Perforation Of Tympanic Visit 9:30a 05/07/07 MD Nate Membrane/Unspecified 389.03 Hearing Loss, Conductive/Middle Ear Office 07/06/2006 [place] Edwin Suggs 384.20 Perforation Of Tympanic Visit 9:45a 05/07/07 MD Nate Membrane/Unspecified 389.03 Hearing Loss, Conductive/Middle Ear Office 01/19/2006 [place],[facility] Edwin Suggs 384.20 Perforation Of Tympanic Visit 9:30a 05/07/07 MD Nate Membrane/Unspecified 381.10 Otitis Media, Chronic Simple Or Unspecified 389.03 Hearing Loss, Conductive/Middle Ear Office 04/06/2005 [place],[facility] Edwin Suggs 384.20 Perforation Of Tympanic Visit 2:30p 05/07/07 MD Nate Membrane/Unspecified 389.03 Hearing Loss, Conductive/Middle Ear Office Visit 01/06/2005 [place],[facility] Edwin Suggs 381.10 Otitis Media, 3:45p 05/07/07 MD Nate Chronic Simple Or Unspecified 384.20 Perforation Of Tympanic Membrane/Unspecified Office Visit 12/23/2004 [place],[facility] Edwin Suggs 381.10 Otitis Media, 11:30a 05/07/07 MD Nate Chronic Simple Or Unspecified Office Visit 12/16/2004 [place],[facility] Eusebio Alexandre 384.20 Perforation Of 3:30p 05/07/07 Robinson Amos M.D. Membrane/Unspecif maribeld 380.23 Otitis Externa, Chronic Office Visit 11/29/2004 5:15p [place],[facility] 05/07/07 Eugene Restrepo 380.23 Otitis Externa, Jesica Ambriz Chronic 384.20 Perforation Of Tympanic Membrane/Unspecified 380.10 Otitis Externa Acute Office Visit 11/15/2004 3:15p [place],[facility] Eusebio Alexandre 380.10 Otitis 05/07/07 Strominger, M.D. Externa Acute 384.20 Perforation Of Tympanic Membrane/Unspecified Plan of Treatment Future Appointment(s):01/17/2019 8:30 am - Danna Garner PA-C at [place] - MENDEZ Rob-CH72.92 Unspecified perforation of tympanic membrane, left earH90.12 Conductive hearing loss, unilateral, left ear, with [id number] Impacted cerumen, left ear
--- NOTE | 2018-07-21 08:45 | ED ---
Upper Extremity Pain - HPI Summary HPI Summary: Patient is a 52 y/o male who presents to the ED c/o shoulder pain. 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 The shock then caused him to jerk his right arm backwards. Patient now c/o right shoulder pain rated a 10/10 in severity. He denies any right wrist/hand pain, numbness, paresthesia, or popping/cracking sensations. The pain is described as shooting, is made worse with movement, and is alleviated by rest. Patient states the pain feels deep in the joint. He has a hx of right shoulder pain for the past 3 months and has been going to physical therapy and getting Cortisone injections. He notes that his pain is always worse the day after physical therapy. Patient denies seeing an orthopedist for his symptoms. Patient has been taking Ibuprofen for his pain. PMHx right shoulder arthritis, C6 nerve pain, and left humerus fracture. - History of Current Complaint Chief Complaint: EDExtremityUpper Stated Complaint: RIGHT SHOULDER IS KILLING ME PER PT Time Seen by Provider: 07/21/18 08:30 Hx Obtained From: Patient Mechanism Of Injury: Other - shocked from fence, jolted arm backwards Onset/Duration: Started Days Ago - yesterday, Still Present Timing: Constant Severity Currently: Severe - 10/10 Pain Location: Shoulder - right Character: Sharp - stabing Aggravating Factor(s): Movement Alleviating Factor(s): Rest Associated Signs & Symptoms: Negative: Numbness/Tingling Related History: Similar Episode/Dx As - right shoulder arthritis - Allergies/Home Medications Allergies/Adverse Reactions: Allergies Allergy/AdvReac Type Severity Reaction Status Date / Time Penicillins Allergy Rash Verified 07/21/18 08:34 PMH/Surg Hx/FS Hx/Imm Hx Cardiovascular History: Comment Only: Hx Hypertension - GIVES MORE ACCURATE READING WHEN DONE MANUALLY Respiratory History: Reports: Other Respiratory Problems/Disorders History: Reports: Other Problems/Disorders - UTI's as teenager Musculoskeletal History: Reports: Hx Arthritis, Hx of Fracture(s) - LUE Sensory History: Reports: Hx Contacts or Glasses - GLASSES Opthamlomology History: Reports: Hx Contacts or Glasses - GLASSES - Surgical History Surgery Procedure, Year, and Place: 1979, 2005, 20O7 three ear surgeries for perforation of eardrum. [facility]. 2005 LEFT ING. hernia REPAIR [facility] Hx Anesthesia Reactions: No Infectious Disease History: No Infectious Disease History: Denies: Traveled Outside the [place] in Last 30 Days - Family History Known Family History: Positive: Diabetes, Other - lupus, alzheimer's - Social History Alcohol Use: Occasionally Alcohol Amount: 2-3 BEERS/WEEK Hx Substance Use: No Substance Use Type: Reports: None Hx Tobacco Use: Yes Smoking Status (MU): Former Smoker Type: Cigarettes Amount Used/How Often: 1/2PPD 15 YRS Have You Smoked in the Last Year: No Review of Systems Positive: Arthralgia - right shoulder. Negative: Other - right hand or wrist pain, popping/cracking sensations Negative: Paresthesia, Numbness All Other Systems Reviewed And Are Negative: Yes Physical Exam - Summary Physical Exam Summary: Appearance: Well appearing, no pain distress Skin: warm, dry, reflects adequate perfusion Head/face: normal Eyes: EOMI, NOELLE ENT: mucous membranes moist Neck: supple, non-tender Respiratory: CTA, breath sounds present Cardiovascular: RRR, pulses symmetrical Abdomen: non-tender, soft Bowel Sounds: present Musculoskeletal: limited ROM of right shoulder due to pain, NV intact distally, no palpable tenderness, no effusion or warmth at right shoulder Neuro: normal, sensory motor intact, A&Ox3 Triage Information Reviewed: Yes Vital Signs On Initial Exam: Initial Vitals Temp Pulse Resp BP Pulse Ox 97.2 F 75 16 152/103 97 07/21/18 08:29 07/21/18 08:29 07/21/18 08:29 07/21/18 08:29 07/21/18 08:29 Vital Signs Reviewed: Yes Procedures - Procedure Summary Procedure Summary: Right shoulder joint injection: The anterior R shoulder was cleaned with chloroprep and injected with a total of 10cc of 0.5% bupivicaine with epi via anterior approach with 25g needle. Tolerated well without complication. Pain relief is good. Diagnostics - Vital Signs Vital Signs Temp Pulse Resp BP Pulse Ox 07/21/18 08:29 97.2 F 75 16 152/103 97 - Laboratory Lab Statement: Any lab studies that have been ordered have been reviewed, and results considered in the medical decision making process. Re-Evaluation - Re-Evaluation First Eval Re-Evaluation Time: 09:26 Change: Improved Comment: Pt is feeling better. Course/Dx - Course Course Of Treatment: Nurses notes reviewed. R shoulder reinjury. No effusion or warmth. Shoulder injected with bupivicaine with improvement. ROM exercises -- f/ u Ortho. Tx symptomatically. - Diagnoses Differential Diagnosis/HQI/PQRI: Positive: Bursitis, Septic Arthritis, Strain, Sprain Provider Diagnoses: Shoulder sprain, Shoulder arthritis Discharge - Sign-Out/Discharge Documenting (check all that apply): Patient Departure - Discharge Patient Received Moderate/Deep Sedation with Procedure: No - Discharge Plan Condition: Improved Disposition: HOME Prescriptions: Cyclobenzaprine (NF) [Cyclobenzaprine 5 MG (NF)] 5 mg PO TID PRN #15 tab PRN Reason: muscle pain oxyCODONE/Acetamin 5/325 MG* [Percocet 5/325 TAB*] 1 tab PO Q6H PRN #10 tab MDD 4 PRN Reason: more severe pain Patient Education Materials: Muscle Strain (ED), Osteoarthritis (ED) Forms: *Work Release Referrals: Braxton Disla MD [Medical Doctor] - Vinh Kinsey MD [Primary Care Provider] - Additional Instructions: Follow-up with physical therapy for ongoing treatment. Ice, rest and massage may help. Range of motion exercises. Follow up with your orthopedist in family doctor. Return if worse or other concerns. Continue Ibuprofen. - Billing Disposition and Condition Condition: IMPROVED Disposition: Home - Attestation Statements Document Initiated by Pankaj: Yes Documenting Scribe: Griselda [place] Provider For Whom Pankaj is Documenting (Include Credential): Abdi Wade MD Scribe Attestation: Griselda Amaro scribed for Abdi Wade MD on 07/21/18 at 1049. Scribe Documentation Reviewed: Yes Provider Attestation: The documentation as recorded by the Griselda perez accurately reflects the service I personally performed and the decisions made by , Abdi Wade MD Status of Scribe Document: Viewed
[2018-07-21] MEDS ORDERED: Bupivacaine 0.5% W/EPI SDV* 30 ML VIAL INJ ONE (08:50)
[2018-07-21] MEDS ORDERED: Orphenadrine Citrate IV* 30 MG/ML 2 ML VIAL IM ONE (08:50)
[2018-07-21] MEDS ORDERED: Ketorolac INJ* 60 MG/2 ML VIAL IM ONE (08:50)
[2018-07-21] MEDS ORDERED: oxyCODONE/Acetamin 5/325 MG* TAB PO ONE (09:21)
[2018-07-21 12:10] VITALS: BP 146/96
== END 2018-07-21 12:08 | disposition home or self-care (01) ==
LOC: ED 08:28
DX: S43.401A Unspecified sprain of right shoulder joint, initial encounter (principal); M19.011 Primary osteoarthritis, right shoulder; I10 Essential (primary) hypertension; Z87.891 Personal history of nicotine dependence; W86.8XXA Exposure to other electric current, initial encounter; Y92.79 Other farm location as the place of occurrence of the external cause
CPT/HCPCS: 96372; 99282; A9270-GY; J1885; J2360

== ENCOUNTER 2018-12-30 06:14 | Day surgery (SDC) | payer BC ==
--- NOTE | 2018-12-26 17:53 | HP ---
PREOPERATIVE HISTORY AND PHYSICAL: DATE OF ADMISSION/SURGERY: 12/30/18 [facility] ATTENDING PHYSICIAN: Dr. Jaquelin Vázquez.* (DICTATED BY MENDEZ STALEY) PROCEDURE: Right shoulder arthroscopic rotator cuff repair, decompression, debridement, possible subpectoral biceps tenodesis. CHIEF COMPLAINT: Right shoulder pain. HISTORY OF PRESENT ILLNESS: Jeremy is a 53-year-old male who presents to the clinic for right shoulder pain due to a partial thickness rotator cuff tear, biceps tendonitis. He has failed conservative measures and therefore agreed to undergo a right shoulder arthroscopic rotator cuff repair, decompression, debridement, possible subpectoral biceps tenodesis with Dr. Vázquez on 12/30/18. PAST MEDICAL HISTORY: Impaired fasting glucose, high cholesterol, seasonal allergies with mild asthma, blind in left eye from . PAST SURGICAL HISTORY: Humeral repair x3, inguinal hernia repair, and left shoulder surgery. The patient denies prior complications with the anesthesia. MEDICATIONS: 1. Singulair 10 mg 1 daily. 2. Cialis 20 mg 1/2 to 1 as needed. 3. Tylenol 500 mg 2 by mouth as needed. 4. Motrin 200 mg as needed. 5. Lyrica 50 mg 1 daily. ALLERGIES: PENICILLIN. FAMILY HISTORY: Positive for cancer, lupus, cardiovascular disease, and CVA as well as a grandfather with history of DVT or PE. SOCIAL HISTORY: He lives with his spouse. He works at [employer]. He is former smoker, quit at age 30. He smoked half pack per day for 15 years. He reports occasional alcohol consumption. He exercises regularly. He is right hand dominant. REVIEW OF SYSTEMS: A 14-point review of systems was reviewed with the patient. Positive for current complaint, otherwise negative. Denies fever, chills, chest pain, shortness of breath, history of bleeding disorder, history of DVT or PE. PHYSICAL EXAMINATION GENERAL: A 53-year-old well-developed, well-nourished male, in no acute distress. VITAL SIGNS: Height 74, weight 234, blood pressure 124/70, respiratory rate 18 , temperature 97.4, BMI 30.0. HEENT: Normocephalic, atraumatic. PERRLA. Throat clear. NECK: Supple. PULMONARY: Lungs clear to auscultation bilaterally. No wheezing, rhonchi, or rales. CARDIO: Regular rate and rhythm. S1 and S2. No murmurs, gallops, or rubs. No edema. ABDOMEN: Positive bowel sounds, soft, nontender. MUSCULOSKELETAL: Right upper extremity: Skin is intact. No warmth or erythema. Forward flexion and abduction to 180, external rotation to 70, internal rotation to the thoracic spine. +5/5 strength to rotator cuff testing with some discomfort. Positive impingement - Speed's, Luis-Marcelo, and O' Terrence's. +2 radial pulse. Sensation intact to light touch distally. NEURO: Alert and oriented x3. Cranial nerves grossly intact. DIAGNOSTIC STUDIES/LAB DATA: MRI of the right shoulder revealed no full- thickness rotator cuff tear, he does have partial tear of the supraspinatus tendon on bursal side as well as subacromial fluid and impingement, fluid in bicipital groove, and AC joint arthritis and mild glenohumeral joint osteoarthritis. IMPRESSION: Right shoulder rotator cuff tear and biceps tendonitis. PLAN: The patient is scheduled to undergo right shoulder arthroscopic rotator cuff repair, decompression, debridement, possible subpectoral biceps tendinosis with Dr. Vázquez on 12/30/18. He will follow up in 10 to 14 days postop for followup and suture removal. Percocet will be used for postop pain management. MENDEZ STALEY [id number]/[facility] #: [id number] MTDSteph
[~2018-12-30 06:14] MED LIST: Buffered Lidocaine 1% SYRIN* 1 ML/SYRINGE INTRADERM ONE; Famotidine IV* 10 MG/ML 2 ML (20 mg) IV ONE; Lactated Ringers 1000 ML Bag* 1,000 ML IV SCH
[2018-12-30] MEDS ORDERED: Famotidine IV* 10 MG/ML 2 ML (20 mg) ONE (06:23)
[2018-12-30] MEDS ORDERED: ceFAZolin 2 GM in NS PREMIX(*) 2 GM/100 ML BAG IVPB ONE (06:23)
[2018-12-30] MEDS ORDERED: ROPIVACAINE 5 MG/ML 30 ML BTL (0.5%) ONE (07:19)
[2018-12-30] MEDS ORDERED: Buffered Lidocaine 1% SYRIN* 1 ML/SYRINGE INTRADERM ONE (07:20)
[2018-12-30] MEDS ORDERED: Lidocaine 1% MPF ** 5 ML VIAL ONE (07:20)
[2018-12-30] MEDS ORDERED: fentaNYL* 50 MCG/ML 2 ML VIAL (100 MCG VIAL) ONE ×2 (07:21→08:06)
[2018-12-30] MEDS ORDERED: Midazolam* 1 MG/ML 5 ML VIAL (5 MG) ONE (07:21)
[2018-12-30] MEDS ORDERED: Bupivacaine 0.25% SDV* 30 ML ONE (07:32)
[2018-12-30] MEDS ORDERED: Dexamethasone IV* 4 MG/ML 1 ML (4 MG) ONE (08:18)
[2018-12-30] MEDS ORDERED: Succinylcholine* 20 MG/ML 10 ML VIAL ONE (08:18)
[2018-12-30] MEDS ORDERED: Ketorolac INJ* 30 MG/ML 1 ML VIAL ONE (08:18)
[2018-12-30] MEDS ORDERED: Ondansetron INJ* 2 MG/ML VIAL ONE (08:18)
[2018-12-30] MEDS ORDERED: Lidocaine 2% PF * 5 ML VIAL ONE (08:18)
[2018-12-30] MEDS ORDERED: Propofol* 10 MG/ML 20 ML BTL ONE (08:18)
[2018-12-30] MEDS ORDERED: DiMENhydriNATE IV* 50 MG/ML VIAL IV PUSH PRN (09:08)
[2018-12-30] MEDS ORDERED: HYDROmorphone INJ1* 1 MG/ML SYRINGE IV PRN (09:08)
[2018-12-30] MEDS ORDERED: Acetaminophen TAB* 325 MG PO PRN (09:08)
[2018-12-30] MEDS ORDERED: Naloxone* 0.4 MG/ML 1 ML VIAL IV PRN (09:08)
[2018-12-30 10:19] VITALS: BP 119/81
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
== END 2018-12-30 10:24 | disposition home or self-care (01) ==
LOC: OREAST 06:14
PROVIDERS: ATTEND Orthopaedic Surgery
DX: S46.011A Strain of muscle(s) and tendon(s) of the rotator cuff of right shoulder, initial encounter (principal); M75.21 Bicipital tendinitis, right shoulder; S43.491A Other sprain of right shoulder joint, initial encounter; X58.XXXA Exposure to other specified factors, initial encounter; Y92.9 Unspecified place or not applicable; G89.18 Other acute postprocedural pain; Z87.891 Personal history of nicotine dependence; R73.01 Impaired fasting glucose; E78.00 Pure hypercholesterolemia, unspecified; J45.909 Unspecified asthma, uncomplicated; H54.40 Blindness, one eye, unspecified eye
CPT/HCPCS: 88304; C1713; C1776; J0330; J0690; J1100; J1885; J2250; J2405; J2704; J2795; J3010; J3490